=== PATIENT | male | born 1980 | race Caucasian/White ===

== ENCOUNTER 2018-11-23 16:56 | Emergency (ER) | payer OTHER, SELFPAY ==
[2018-11-23 16:57] VITALS: BP 159/107; PULSE 85; RESP 16; TEMP 36.6; O2SAT 99; BMI 43.0
[2018-11-23 19:11] VITALS: BP 156/94; RESP 16; O2SAT 99
--- NOTE | 2018-11-23 19:27 | ED.DCSUM_ITS ---
- ER Visit Summary Date of Service: 11/23/18 Chief Complaint: Left ear pain History of Present Illness: The patient is a 38 M who complained of mild sore throat scratchy throat last night. This morning he woke up with left ear pain. His throat is still somewhat scratchy. He has not had fever or chills. Physical Examination: Vital signs significant for blood pressure of 156/94, otherwise unremarkable. Patient sitting upright in bed no acute distress. He is nontoxic appearing. Head neck examination reveals hazy white fluid behind both TMs. On the left the distal canal is erythematous around the TM. Posterior pharynx examination reveals sinus drainage but no significant tonsillar enlargement or uvular deviation. Heart is regular rate and rhythm. Lung sounds are clear. Abdomen is soft nontender. Test Results: [] Emergency Department Course and Treatment: Patient be treated with a course of Augmentin, first dose given here. Treatment Plan: [] Disposition: Discharge Impression: Left otitis media This note was generated with 4th aspect dictation software. It may contain incorrect words, spelling, and punctuation that were not noted in review of the chart prior to signing ED Disposition - Plan for ED Patient: Disposition: Home or Assisted Living Instructions: ED Otitis Media Acute Adult Prescriptions: Amox/Clavulanate Tablet [Augmentin Tablet] 875 mg PO Q12H #20 tablet Referrals: Fito Gomez DO [NON CLINICAL AFFILIATE] - As Needed
[2018-11-23 19:34] VITALS: RESP 18
[2018-11-23] MEDS: Amox/Clavulanate 875 MG Tablet PO (19:34)
== END 2018-11-23 19:35 | disposition home or self-care (01) ==
PROVIDERS: Emergency Provider Emergency Medicine
DX: H66.92 Otitis media, unspecified, left ear (principal); J02.9 Acute pharyngitis, unspecified; E66.9 Obesity, unspecified; Z87.891 Personal history of nicotine dependence
CPT/HCPCS: 99283

== ENCOUNTER 2019-04-11 07:17 | Emergency (ER) | payer OTHER, SELFPAY ==
[2019-04-11 07:18] VITALS: BP 158/94; PULSE 80; RESP 16; TEMP 36.9; O2SAT 99; BMI 39.9
--- NOTE | 2019-04-11 07:25 | RAD_ITS ---
HISTORY: LBP and right leg pain s/p fall 04-07-19 TECHNIQUE: Lumbar spine 3 views Number of images including paperwork: 3 COMPARISON: None FINDINGS: VERTEBRAE: Lucency through the right L1 transverse process could be related to essentially nondisplaced fracture or artifact. VERTEBRAL ALIGNMENT: No traumatic subluxation. DISKS AND JOINTS: Disc heights are relatively well preserved. Moderate to severe facet arthropathy, most pronounced caudally. SOFT TISSUES: Hyperdensity in the right flank region measuring 5 x 9 mm is somewhat anteriorly located on the lateral view and is probably bowel content or calcified node. RAD/Lumbar Spine 2 or 3 Views IMPRESSION: Possible right L1 transverse process fracture. Degenerative changes. at 0750 Reported and signed by: Patricia Rhodes MD Electronically Signed: Patricia Rhodes MD at 7:50 EDT Tel , Service support ,
--- NOTE | 2019-04-11 07:25 | ED.VIS.BACK ---
History of Present Illness Chief Complaint: Back Informant: Patient Onset: Days Context: Sudden Onset Injury: Fall Timing: Continuous Quality: Dull, Aching Location: Lumbar Current Severity: Mild Maximum Severity: Severe Worsened by: improves with: Movement, Bending, - - Twisting to the right lateral Relieved by: Remaining Still Associated Symptoms: Radiation to Right Leg, - - All other associated symptoms are negative. Unable to\. Furthermore, patient denies saddle paresthesia or anesthesia. He denies foot drop. He denies buckling of his knee going up and down steps. Narrative: Patient is a 38-year-old male who presents to the emergency department because of back pain status post fall. He fell on Sunday. He states slipped down steps when it was raining hard. He complains of pain predominantly right lower back. He also reports pain radiating to the right greater trochanteric region. He denies blood in his urine. He denies history of prior back problems. He has not taken anything for it. He states he is put [place] with no improvement. He denies history of hypertension. He is present on no medications. He denies any neurologic, ocular, auditory or visual symptoms. He denies paresthesia, anesthesia or motor weakness. He denies problems with clumsiness. He denies head trauma. He denies neck pain or neck trauma. Prior similar symptoms: No Recent Illness/Hospitalization: No - Past Medical History (1) No significant past medical history Status: Acute Past Medical History - Allergies and Home Meds Allergies/Adverse Reactions: Allergies No Known Allergies Allergy (Verified 04/11/19 07:18) Primary Care Physician: Care Physician,No Primary [Primary Care Provider] - Past Medical History: None Surgical History: no surgical history Lives: Spouse/ Significant Other, With Family Smoking Status: Former smoker Alcohol: None Drugs: None Review of Systems General: Denies: Chills, Fever, Sweats Eyes: Denies: Visual changes - bilaterally, Blurred Vision - bilaterally, Diplopia ENT: Denies: Rhinorrhea, Sore throat Cardiovascular: Denies: Chest pain, Palpitations Respiratory: Denies: Dyspnea, Cough, Dyspnea on exertion Gastrointestinal: Denies: Abdominal pain, Nausea, Vomiting, Diarrhea, Melena, Hematochezia Genitourinary: Denies: Dysuria, Hematuria, Frequency Musculoskeletal: Reports: Back pain. Denies: Myalgias, Arthralgias, Neck pain, Swelling, Extremity Pain, -, - Skin: Denies: Rash, Wounds Neurological: Denies: Headache, Weakness, Numbness Hematologic: Denies: Easy bruising, Easy bleeding Allergy: Denies: Uticaria, Swelling of the mouth, Swelling of the tongue Physical Exam Vital Signs/Narrative: Vital Signs Temp Pulse Resp BP Pulse Ox 04/11/19 07:18 98.4 F 80 16 158/94 H 99 Inital Vital Signs reviewed: Yes General: Well nourished, Well developed Head: Normocephalic, Atraumatic Eyes: Perrl, EOMI ENT: Moist mucous membranes, No rhinorrhea Neck: Supple, Nontender Cardiovascular: Regular rate, Regular rhythm, No murmurs Respiratory: No distress, CTA bilaterally, Chest nontender Abdomen: Soft, Nontender, Nondistended, Normal bowel sounds Back: Normal Inspection, Nontender, Spinal tenderness, Paraspinal Tenderness, Negative SLR - Right, Negative SLR - Left. Negative for: Surgical Scar, CVA tenderness Extremeties: Nontender, No edema Skin: Normal color, No rash Neuro: Alert, Oriented, Normal Strength, Normal Sensation, Normal DTR, Normal Gait, Normal Reflexes - Patella and ankle reflexes are 1+., - - Gait was observed. There is no foot drop. He is able to walk on heels and toes. EHL is intact. He is able to perform 1 legged squat right and left side. Reflexes: Right Patellar, Right Achilles, Left Patellar, Left Achilles. Negative for: Right Clonus, Right Babinski, Left Clonus, Left Babinski Psychological: Normal affect Diagnostic/Tx/Re-eval X-Ray: LS SPine - Three-view x-ray of the LS spine reveals no fracture, asymmetry of the joints or malalignment. There is evidence of a right renal calculus., - - Medical Decision Making With history of pain after fall. Will obtain x-ray to evaluate for fracture. Since his drove him to the emergency department he received one [place] tablet and 1 500 mg tablet of Naprosyn. Differential is contusion versus strain versus fracture. ED Disposition - Plan for ED Patient: Disposition: Home or Assisted Living Diagnosis: Contusion of lower back and pelvis, initial encounter, Strain of muscle, fascia and tendon of lower back, initial encounter, Elevated blood pressure reading Instructions: Back Sprain/Strain, HYPERTENSION, To Be Confirmed Prescriptions: Naproxen [Naprosyn] 500 mg PO BID #10 tab Transmission Status: Pending to [facility]30 Referrals: Care Physician,No Primary [Primary Care Provider] - Cornelius Rosas MD [STAFF PHYSICIAN] - Additional Instructions: Your prescription was electronically transmitted to [facility]. You were referred to Dr. Cornelius Rosas since she did not have a physician. Your blood pressure is elevated. Your blood pressure should be rechecked in 1 to 2 weeks.
[2019-04-11] MEDS: HYDROcodone Bitartrate/Apap 5/325 Tablet PO (07:28)
[2019-04-11] MEDS: Naproxen 500 MG Tablet PO (07:29)
[2019-04-11 08:03] VITALS: BP 149/101
== END 2019-04-11 08:03 | disposition home or self-care (01) ==
LOC: ED 07:55
PROVIDERS: Emergency Provider Emergency Medicine
DX: S30.0XXA Contusion of lower back and pelvis, initial encounter (principal); S39.012A Strain of muscle, fascia and tendon of lower back, initial encounter; R03.0 Elevated blood-pressure reading, without diagnosis of hypertension; W10.9XXA Fall (on) (from) unspecified stairs and steps, initial encounter; Y93.9 Activity, unspecified; Y92.9 Unspecified place or not applicable; Z87.891 Personal history of nicotine dependence
CPT/HCPCS: 72100; 99283

== ENCOUNTER 2019-05-17 15:15 | Emergency (ER) | payer OTHER, SELFPAY ==
[2019-05-17 15:16] VITALS: BP 191/81; PULSE 86; RESP 16; TEMP 36.3; O2SAT 98; BMI 41.8
--- NOTE | 2019-05-17 15:51 | ED.DCSUM_ITS ---
History of Present Illness Informant: Patient Occurred: Today Mechanism/Context: Puncture Wound Onset: Today Context: Sudden Onset Timing: Continuous Quality of Pain: Throbbing Current Severity: Mild Maximum Severity: Mild Worsened by: walking Relieved by: pressure dressing Associated Symptoms: Negative for: Parasthesia, Weakness, Loss of Funtion Narrative: 38-year-old male presents for wound check left leg. He had a blister there is been there for months. He was scratching it and it started to bleed. He had difficulty getting the bleeding to stop and now presents to the emergency department for evaluation. Patient is not on blood thinners. He has no history of clotting disorder. He is not having any pain. He denies trauma. He denies numbness or tingling. Bleeding has stopped on arrival as he used a T-shirt as a tourniquet on his leg. Tetanus Immunization: Unknown Prior similar symptoms: No Recent Illness/Hospitalization: No <Krzysztof Ribeiro - Last Filed: 05/17/19 15:51> <Chata Bragg - Last Filed: 05/17/19 16:02> Chief Complaint: Wound Past Medical History Prior records reviewed: Yes Past Medical History: - - Hypertension Surgical History: no surgical history Lives: With Family Smoking Status: Former smoker <Krzysztof Ribeiro - Last Filed: 05/17/19 15:51> <Chata Bragg - Last Filed: 05/17/19 16:02> - Allergies and Home Meds Allergies/Adverse Reactions: Allergies No Known Allergies Allergy (Verified 05/17/19 15:15) Primary Care Physician: Joe Clements MD [NON-STAFF] - Review of Systems All systems negative except as indicated Musculoskeletal: Denies: Swelling, Extremity Pain Skin: Reports: Wounds Neurological: Denies: Weakness, Parasthesia, Numbness <Krzysztof Ribeiro - Last Filed: 05/17/19 15:51> Physical Exam Vital Signs/Narrative: Vital Signs Temp Pulse Resp BP Pulse Ox 05/17/19 15:16 97.3 F L 86 16 191/81 H 98 Inital Vital Signs reviewed: Yes - Extremity Exam Right Tib fib: - - Small blister left anterior leg. It is not actively bleeding. There are no signs of infection. There is no asymmetrical leg swelling. There are no signs of compartment syndrome. He is neurovascularly intact distally. He has normal range of motion actively of his lower extremity. His gait is normal. General: Well nourished, Well developed Head: Normocephalic, Atraumatic Eyes: Perrl, EOMI ENT: No Trauma, Moist Mucous Membranes Neck: Nontender, Full ROM Cardiovascular: Regular rate, Regular rhythm, No murmurs Respiratory: No distress, CTA bilaterally, Chest nontender Abdomen: Soft, Nontender, Nondistended, Normal bowel sounds, No masses Back: Nontender, Negative SLR - Right, Negative SLR - Left Skin: Normal color, No rash Neurological: Alert, Oriented x3 <Krzysztof Ribeiro - Last Filed: 05/17/19 15:51> Vital Signs/Narrative: Vital Signs Temp Pulse Resp BP Pulse Ox 05/17/19 15:16 97.3 F L 86 16 191/81 H 98 <Chata Bragg - Last Filed: 05/17/19 16:02> Diagnostic/Tx/Re-eval - Medical Decision Making On arrival there is no active bleeding. Patient has no signs of infection or c ompartment syndrome. His gait is normal. Gelfoam and a pressure dressing were applied. He had no further bleeding. He ambulates without bleeding. He will be discharged. We discussed proper wound care. He was given signs of infection to monitor for. He was advised to follow-up with his primary care physician. <Krzysztof Ribeiro - Last Filed: 05/17/19 15:51> - Medical Decision Making Patient seen and evaluated with PA. Patient presents with what he thought was a blood blister over the lower leg for the last 1 month. He was scratching at it today and it started bleeding. Bleeding is controlled at this time. He is a small scabbed wound to the left anterior bond. No sign of abscess. Wound is cleansed and dressed. He was given return instructions. <Chata Bragg - Last Filed: 05/17/19 16:02> ED Disposition <Krzysztof Ribeiro - Last Filed: 05/17/19 15:51> <Chata Bragg - Last Filed: 05/17/19 16:02> - Plan for ED Patient: Disposition: Home or Assisted Living Diagnosis: Blister Instructions: Varicose Veins Referrals: Joe Clements MD [NON-STAFF] -
[2019-05-17 16:09] VITALS: BP 177/87; PULSE 78; RESP 16; O2SAT 99
== END 2019-05-17 16:11 | disposition home or self-care (01) ==
LOC: ED 16:03
PROVIDERS: Emergency Provider Physician Assistant Medical; Family Provider Family Medicine; PCP Family Medicine
DX: S80.822A Blister (nonthermal), left lower leg, initial encounter (principal); X58.XXXA Exposure to other specified factors, initial encounter; Y93.9 Activity, unspecified; Y92.9 Unspecified place or not applicable; Z87.891 Personal history of nicotine dependence
CPT/HCPCS: 99282; A4216

== ENCOUNTER 2019-10-17 17:08 | Emergency (ER) | payer BC, SELFPAY ==
[2019-10-17 17:09] VITALS: BP 166/90; PULSE 82; RESP 16; TEMP 36.1; O2SAT 99; BMI 42.5
--- NOTE | 2019-10-17 17:34 | EKG12_ITS ---
Test Reason : CP Blood Pressure : / mmHG Vent. Rate : 086 BPM Atrial Rate : 086 BPM P-R Int : 168 ms QRS Dur : 094 ms QT Int : 370 ms P-R-T Axes : 050 033 049 degrees QTc Int : 442 ms Normal sinus rhythm Normal ECG Confirmed by KAUR LI, ALEX ([id number]), mapping editor HIEN CAMACHO ([id number]) on 10/20/2019 2:10:25 PM Referred By: ERNA Confirmed By:JERILYN DIETRICH MD
--- NOTE | 2019-10-17 17:35 | RAD_ITS ---
STUDY: X-RAY CHEST REASON FOR EXAM: Male, 38 years old. Chest pain TECHNIQUE: Single AP portable view of the chest. COMPARISON: None. FINDINGS: The lungs are clear and expanded. There is no demonstrated pleural abnormality. Normal size heart. Normal mediastinum and jose. Normal visualized pulmonary arteries. Normal visualized aortic arch and descending thoracic aorta. Normal visualized thoracic spine. Normal visualized ribs, clavicles, and shoulders. There is no demonstrated abnormality of the visualized soft tissue structures of the upper abdomen. RAD/Chest 1 View (Portable) IMPRESSION: Normal x-ray examination of the chest. Electronically Signed: Wellington Joshi MD at 18:03 EST , Service support ,
[2019-10-17 17:46] VITALS: O2SAT 98
[2019-10-17] MEDS: Aspirin 81 MG TAB.CHEW 324 MG PO (17:46)
[2019-10-17 17:49] LABS: Absolute Lymphocyte Count 2.35 X10^3/uL (0.83-4.51); Absolute Neutrophil Count 4.3 X10^3/uL (2.0-7.7); Basophil# 0.05 X10^3/uL; Basophil% 0.7 % (0-1); Eosinophil# 0.27 X10^3/uL; Eosinophils% 3.5 % (0-5); Hematocrit 43.5 % (40-54); Hemoglobin 15.2 g/dL (13.0-16.5); Lymphocyte # 2.35 X10^3/ul (4.0); Lymphocyte % 30.8 % (19-41); Mean Corp Hgb Conc 34.9 g/dL (32-36); Mean Corpuscular Hgb 29.2 pg (27.0-32.0); Mean Corpuscular Volume 83.5 fL (80-94); Mean Platelet Vol. 10.6 fl (6.2-12.0); Monocyte# 0.61 X10^3/uL; NRBC Flagged by Analyzer 0 % (0-5); Neutrophil # 4.31 X10^3/uL (2.7-7.7); Neutrophil % 56.5 % (47-70); Platelet Count 239 K/mm3 (150-450); RBC Distribution Width CV 13.1 % (11.6-14.6); RBC Distribution Width SD 39.4 fl (35.1-43.9); Red Blood Count 5.21 M/mm3 (4.6-6.2); White Blood Count 7.6 K/mm3 (4.4-11.0)
[2019-10-17 18:04] LABS: Anion Gap 4 (5-15); BUN 11 mg/dL (7-18); Calcium,Total 8.7 mg/dL (8.5-10.1); Chloride 104 mmol/L (98-107); EST Glomerular Filtration Rate 88 mL/min (>60); Est Glom Filt Rate - Afr Amer 106 mL/min (>60); Estimated Creatinine Clearance 117.36 ml/min; Glucose 97 mg/dL (74-106); Potassium 3.6 mmol/L (3.5-5.1); Sodium Level 139 mmol/L (136-145)
[2019-10-17 18:08] VITALS: BP 154/79; PULSE 72; RESP 20; O2SAT 98
[2019-10-17 19:00] VITALS: BP 145/98; PULSE 65; RESP 20; O2SAT 98
--- NOTE | 2019-10-17 19:00 | ED.VISSUMM ---
- ER Visit Summary Date of Service: 10/17/19 Chief Complaint: Chest discomfort History of Present Illness: The patient is a 38 M past medical history of hypertension. Patient states he has needlelike pain sensation in his chest that is been constant for last couple days. No prior cardiac work-up nor heart cath or stress test. Not associated with exertion. No nausea. No diaphoresis. No significant shortness of breath. No history of DVT or PE. No recent travel surgery or immobilization. Not pleuritic in nature. No hemoptysis. No leg pain or swelling. Physical Examination: Middle-aged male no acute distress vital signs stable afebrile. Pulse ox 99% on room air no signs hypoxia. H EENT exam normal. Neck nontender no JVD. Lungs clear to auscultation bilaterally. Heart regular rhythm no murmur. Chest were nontender. Abdomen soft nontender normal bowel sounds no peritoneal signs. Patient moving all 4 extremities. Neurovascular intact. Calves nontender without edema or cords. Equal symmetrical rim fire priming operator strength 5-5. Dorsi plantarflexion intact. Radial pulses equal symmetrical. Neurologically patient is awake alert with no focal motor deficits. Test Results: Chest x-ray portable 1 view read by myself the radiologist shows no acute abnormality with a normal cardiac silhouette mediastinum. EKG normal sinus rhythm rate 86 with no acute signs of UT or ischemia. CBC normal. Chemistries normal normal creatinine gap. Troponin normal. Emergency Department Course and Treatment: Patient treated with p.o. aspirin. Repeat exam is unremarkable at 1901 p.m. Clinically this does not sound cardiac. He has a negative work-up. This is nonexertional. He has limited cardiac risk factors. He is not diabetic. He is a non-smoker. He does not have a significant family history of cardiac disease or for clotting disorder. Treatment Plan: Discharged home. Outpatient follow-up. Return if worse. Disposition: Discharge Impression: Atypical chest pain uncertain etiology This note was generated with [employer] dictation software. It may contain incorrect words, spelling, and punctuation that were not noted in review of the chart prior to signing ED Disposition - Plan for ED Patient: Referrals: Joe Clements MD [Primary Care Provider] -
--- NOTE | 2019-10-17 19:03 | ED.DEP ---
ED Disposition - Plan for ED Patient: Disposition: Home or Assisted Living Instructions: CHEST PAIN, Uncertain Cause Referrals: Joe Clements MD [Primary Care Provider] - 3-5 Days Additional Instructions: Follow-up with your doctor. All your tests today were normal.
== END 2019-10-17 19:15 | disposition home or self-care (01) ==
PROVIDERS: Emergency Provider Emergency Medicine; PCP Family Medicine
DX: R07.89 Other chest pain (principal); I10 Essential (primary) hypertension; Z79.899 Other long term (current) drug therapy
CPT/HCPCS: 71045; 80048; 84484; 85025; 93005; 99285; A4216

== ENCOUNTER 2020-05-12 18:15 | Emergency (ER) | payer SELFPAY ==
[2020-05-12 18:16] VITALS: BP 100/59; PULSE 88; RESP 18; TEMP 36.3; O2SAT 99; BMI 43.2
--- NOTE | 2020-05-12 18:33 | EKG12_ITS ---
Test Reason : CP Blood Pressure : / mmHG Vent. Rate : 079 BPM Atrial Rate : 079 BPM P-R Int : 162 ms QRS Dur : 092 ms QT Int : 382 ms P-R-T Axes : 034 026 035 degrees QTc Int : 438 ms Sinus rhythm with frequent Premature ventricular complexes Otherwise normal ECG Confirmed by ARMANI LI, AYANA ([id number]), assignment desk editor HIEN CAMACHO ([id number]) on 05/17/2020 1:27:07 PM Referred By: AZALEA Confirmed By:AYANA LOMELI MD
[2020-05-12 18:47] VITALS: O2SAT 96
--- NOTE | 2020-05-12 18:50 | RAD_ITS ---
STUDY: X-RAY CHEST REASON FOR EXAM: Male, 39 years old. Dizziness. Shortness of breath for 2 weeks. Heart pounding. TECHNIQUE: Single AP portable view of the chest. COMPARISON: 10/17/2019. FINDINGS: The lungs are clear and expanded. There is no demonstrated pleural abnormality. Normal size heart. Normal mediastinum and jose. Normal visualized pulmonary arteries. Normal visualized aortic arch and descending thoracic aorta. Normal visualized thoracic spine. Normal visualized ribs, clavicles, and shoulders. There is no demonstrated abnormality of the visualized soft tissue structures of the upper abdomen. RAD/Chest 1 View (Portable) IMPRESSION: No acute cardiopulmonary disease or interval change. Electronically Signed: Ford Wright DO at 19:18 EDT Tel [phone], Service support ,
[2020-05-12 18:59] LABS: Absolute Lymphocyte Count 1.85 X10^3/uL (0.83-4.51); Absolute Neutrophil Count 6.6 X10^3/uL (2.0-7.7); Basophil# 0.04 X10^3/uL; Basophil% 0.4 % (0-1); Eosinophil# 0.14 X10^3/uL; Eosinophils% 1.5 % (0-5); Hematocrit 43.4 % (40-54); Hemoglobin 14.9 g/dL (13.0-16.5); Lymphocyte # 1.85 X10^3/ul (4.0); Lymphocyte % 20.1 % (19-41); Mean Corp Hgb Conc 34.3 g/dL (32-36); Mean Corpuscular Hgb 29.5 pg (27.0-32.0); Mean Corpuscular Volume 85.9 fL (80-94); Mean Platelet Vol. 10.1 fl (6.2-12.0); Monocyte# 0.54 X10^3/uL; Monocyte% 5.9 % (0-10); NRBC Flagged by Analyzer 0 % (0-5); Neutrophil # 6.59 X10^3/uL (2.7-7.7); Neutrophil % 71.7 % (47-70); Platelet Count 252 K/mm3 (150-450); RBC Distribution Width CV 12.9 % (11.6-14.6); RBC Distribution Width SD 39.9 fl (35.1-43.9); Red Blood Count 5.05 M/mm3 (4.6-6.2); White Blood Count 9.2 K/mm3 (4.4-11.0)
--- NOTE | 2020-05-12 19:03 | ED.VIS.GEN ---
History of Present Illness Chief Complaint: Palpitations Informant: Patient Onset: Days Timing: Intermittent Narrative: Patient presents secondary to feeling like his heart is pounding hard. He has episodes of dizziness and lightheadedness. Symptoms been ongoing for the past 2 weeks. Patient had been on metoprolol for blood pressure control and was out of his medications for couple of weeks. He contacted his PCP who sent in a refill the medication. He started taking half dose yesterday and again today. At work today he states he felt lightheaded as if he may pass out and his heart was pounding so he came to the emergency room. On arrival blood pressure was 100/59 which patient states is extremely low for him. The time of my examination his blood pressure is 129/85. - Past Medical History (1) Hypertension Status: Chronic Past Medical History - Allergies and Home Meds Allergies/Adverse Reactions: Allergies No Known Allergies Allergy (Verified 05/12/20 18:15) Primary Care Physician: Joe Clements MD [Primary Care Provider] - Prior records reviewed: Yes Surgical History: no surgical history Smoking Status: Former smoker Review of Systems General: Denies: Chills, Fever Eyes: Denies: Visual changes - bilaterally ENT: Denies: Bilateral ear pain Cardiovascular: Reports: Palpitations Respiratory: Reports: Dyspnea. Denies: Cough Musculoskeletal: Denies: Swelling, Extremity Pain Skin: Denies: Rash Neurological: Reports: - - Dizzy and lightheaded Hematologic: Denies: Easy bruising, Easy bleeding Allergy: Denies: Uticaria Physical Exam Vital Signs/Narrative: Vital Signs Temp Pulse Resp BP Pulse Ox 05/12/20 18:47 96 05/12/20 18:16 97.4 F L 88 18 100/59 L 99 Inital Vital Signs reviewed: Yes General: Well nourished, Well developed Head: Normocephalic ENT: Moist mucous membranes Neck: Supple Cardiovascular: Regular rate, Regular rhythm Respiratory: No distress, CTA bilaterally Abdomen: Soft, Nontender Extremities: Nontender Skin: Normal color, No rash Neurological: Alert, Oriented x3, Normal Strength, Normal Sensation Psychological: Normal affect Diagnostic/Tx/Re-eval Impressions Chest X-Ray 05/12/20 18:50 IMPRESSION: No acute cardiopulmonary disease or interval change. Electronically Signed: Ford Wright DO at 19:18 EDT Tel [phone], Service support , 05/12/20 18:50 Chest 1 View (Portable) [RAD] Stat Laboratory Results 05/12/20 05/12/20 05/12/20 18:45 18:45 18:45 WBC 9.2 RBC 5.05 Hgb 14.9 Hct 43.4 MCV 85.9 MCH 29.5 MCHC 34.3 RDW Std Deviation 39.9 RDW Coeff of Danette 12.9 Plt Count 252 MPV 10.1 Immature Gran % (Auto) 0.400 Neut % (Auto) 71.7 H Lymph % (Auto) 20.1 [place] % (Auto) 5.9 Eos % (Auto) 1.5 Baso % (Auto) 0.4 Absolute Neuts (auto) 6.6 Absolute Lymphs (auto) 1.85 Nucleated RBC % 0 Sodium 139 Potassium 3.5 Chloride 109 H Carbon Dioxide 29.0 Anion Gap 1 L BUN 10 Creatinine 0.95 Estim Creat Clear Calc 122.30 Est GFR (MDRD) Af Amer 112 Est GFR (MDRD) Non-Af 92 BUN/Creatinine Ratio 10.5 Glucose 81 Calcium 9.0 Troponin I < 0.015 TSH 1.69 - EKG Initial EKG Interpretation: Sinus Rhythm - Sinus at 79 with PVCs. No acute ischemia. - Medical Decision Making Patient was given IV fluids here. At this time he feels much improved. PVCs have decreased in frequency. Blood pressure is currently 140/110, closer to what he states his baseline is. Patient will start taking his metoprolol at bedtime to see if this helps minimize any side effects of the medication. He is comfortable with outpatient follow-up. ED Disposition - Plan for ED Patient: Disposition: Home or Assisted Living Diagnosis: Palpitations Instructions: ED Palpitations Referrals: Joe Clements MD [Primary Care Provider] - 1 Week if not improving
[2020-05-12 19:15] VITALS: BP 147/107; PULSE 70; RESP 16; O2SAT 97
[2020-05-12 19:17] LABS: Anion Gap 1 (5-15); BUN 10 mg/dL (7-18); BUN/Creat Ratio 10.5 RATIO (10-20); Chloride 109 mmol/L (98-107); Creatinine, Serum 0.95 mg/dL (0.70-1.30); EST Glomerular Filtration Rate 92 mL/min (>60); Est Glom Filt Rate - Afr Amer 112 mL/min (>60); Glucose 81 mg/dL (74-106); Potassium 3.5 mmol/L (3.5-5.1); Sodium Level 139 mmol/L (136-145)
[2020-05-12 19:41] LABS: Thyroid Stim Hormone (TSH) 1.69 uIU/mL (0.358-3.74)
[2020-05-12 20:02] VITALS: BP 143/86; PULSE 64; RESP 16; O2SAT 100
[2020-05-12] MEDS: 0.9% Normal Saline 1,000 ML 150 ML IV (20:03)
[2020-05-12 20:28] VITALS: BP 140/110; PULSE 59; RESP 16; O2SAT 100
== END 2020-05-12 20:30 | disposition home or self-care (01) ==
PROVIDERS: Emergency Provider Emergency Medicine; PCP Family Medicine
DX: R00.2 Palpitations (principal); I49.3 Ventricular premature depolarization; I10 Essential (primary) hypertension; Z79.899 Other long term (current) drug therapy; Z87.891 Personal history of nicotine dependence
CPT/HCPCS: 71045; 80048; 84443; 84484; 85025; 93005; 99284; J7030; A4216

== ENCOUNTER 2021-10-28 11:30 | Emergency (ER) | payer OTHER, SELFPAY ==
[2021-10-28 11:31] VITALS: BP 159/102; PULSE 103; RESP 16; TEMP 36.9; O2SAT 99; BMI 45.0
--- NOTE | 2021-10-28 11:41 | EX.ED.DYSGE1 ---
HPI History of Present Illness Chief Complaint: Sore Throat Informant: patient Narrative Narrative: 2-day history of sore throat pain with swallowing no fevers. Mild cough. No headaches vomiting or diarrhea. is sick with similar symptoms however reported she is on antibiotics for other infectious treatment. Nonvaccinated for Covid. No myalgias. History of hypertension on medications. Prior similar symptoms: Yes PFSH PFSH Home Medications metoprolol succinate 50 mg PO DAILY 10/17/19 [History Last Taken 05/12/20] Allergy/AdvReac Type Severity Reaction Status Date / Time No Known Allergies Allergy Verified 10/28/21 11:34 Social History Smoking Status: Former smoker ROS ROS ED Constitutional Constitutional ED: Denies chills, fever(s) or sweats Eyes Eyes: Denies change in vision ENT ENT ED: Reports sore throat; Denies dysphagia Cardiovascular Cardiovascular: Denies chest pain, leg edema, palpitations or racing heartbeat Respiratory/Chest Respiratory/Chest: Reports cough; Denies dyspnea or dyspnea on exertion Gastrointestinal Gastrointestinal: Denies abdominal pain, diarrhea, nausea or vomiting Genitourinary Genitourinary ED: Denies dysuria, hematuria or urinary frequency Musculoskeletal Musculoskeletal: Denies back pain, extremity pain or neck pain Integumentary Denies rash or wounds Neurologic Neurologic: Denies headache(s), paresthesias or weakness EXAM Physical Exam Const Vital Signs: 10/28/21 11:31 Temperature 98.4 F Temperature Source Temporal Pulse Rate 103 H Respiratory Rate 16 Blood Pressure 159/102 H Blood Pressure Mean 121 Pulse Ox 99 Oxygen Delivery Method Room Air Positive well nourished and well developed General Appearance ED: well developed and NAD HEENT Reports TM's clear and moist mucous membranes HEENT Narrative: 2+ symmetric tonsils with erythema no exudates uvula midline. No trismus. Airway patent. normocephalic and atraumatic Tympanic Membrane ED: Yes TM's clear Eyes PERRL, EOMs intact bilaterally and conjunctivae normal General Eye ED: Yes normal appearance of both eyes Neck no lymphadenopathy and supple General: Negative for tenderness Chest Wall Chest: Negative for tenderness Resp normal respiratory effort and normal air movement Effort and Inspection: symmetric chest movement; Negative for respiratory distress Cardio regular rate, regular rhythm and no murmurs Peripheral Pulses: pulses 2+ throughout GI normal to inspection, nondistended, normoactive bowel sounds and non-tender Palpation: Negative for guarding or rebound tenderness present Back/Spine no CVA tenderness and no thoracic nor lumbar tenderness Extremity normal to inspection General Extremety ED: Negative for edema or tenderness General Extremity: Negative for edema Neuro oriented x3 and no sensory deficits noted Sensorium / Orientation: awake and alert Skin no rashes or lesions noted and no wounds MDM MDM MDM Narrative Medical decision making narrative: Patient nontoxic, started with dexamethasone. Rapid strep returned positive. He elected injection Bicillin was ordered. Also wanted a Covid test which obtained and returned negative. He is discharged with outpatient follow-up. Discharge Plan Triage Chief Complaint: Sore Throat ED Provider: Maximino Larry Dx/Rx/DC Orders Clinical Impression: Acute streptococcal pharyngitis Instructions: ED Pharyngitis, Strep (Confirmed) Prescriptions: No Action metoprolol succinate 25 MG capsule,sprinkle,ER 24hr 50 mg PO DAILY RF: 0 Primary Care Provider: Joe Clements Referrals: Joe Clements MD [Primary Care Provider] - 5-7 Days Activity Restrictions/Additional Instructions: Positive strep throat. Status post Decadron and Bicillin injection. Did give Tylenol Motrin as needed continue oral fluids. Disposition Disposition: Home, Self Care Discharge Date/Time: 10/28/21 12:56
[2021-10-28] MEDS: dexAMETHasone 4 MG Tablet 12 MG PO (12:06)
[2021-10-28] MEDS: Penicillin G Benzathine 1.2 MU/2 ML Syringe IM (12:53)
== END 2021-10-28 12:56 | disposition home or self-care (01) ==
PROVIDERS: Emergency Provider Emergency Medicine; PCP Family Medicine; Visit Provider Emergency Medicine
DX: J02.0 Streptococcal pharyngitis (principal); I10 Essential (primary) hypertension; Z79.899 Other long term (current) drug therapy; Z87.891 Personal history of nicotine dependence
CPT/HCPCS: 87077; 87426; 87880; 96372; 99283

== ENCOUNTER 2022-04-24 07:22 | Emergency (ER) | payer OTHER, SELFPAY ==
[2022-04-24 07:22] VITALS: BP 165/114; PULSE 100; RESP 18; TEMP 36.6; O2SAT 96; BMI 41.8
--- NOTE | 2022-04-24 09:22 | ED.VIS.LOWEX ---
HPI History of Present Illness HPI Narrative: Patient presents with left hip pain that began 2 days ago. Patient states he twisted and felt pain in his left hip at that time. Patient describes the pain as aching. Patient states the pain is worse with ambulation. Patient denies any paresthesias or weakness. Patient denies any other injuries. Patient states nothing makes the pain better. Chief Complaint: Lower Extremity Injury Informant: patient Occured/Mechanism Comment: Twisted left hip Onset/Context/Timing Onset: Days (2 days ago) Context: Sudden Onset Timing: Continuous Quality of Pain: Aching Location: Left hip Worsened by: Ambulation Relieved by: Nothing Associated Symptoms Associated Symptoms: Negative for Parasthesia, Weakness or Loss of Funtion PFSH PFSH Medical History no medical history no medical history Home Medications naproxen 500 mg tablet 500 mg PO BID PRN #20 tabs 04/24/22 [Rx Last Taken Unknown] Allergy/AdvReac Type Severity Reaction Status Date / Time No Known Allergies Allergy Verified 04/24/22 07:24 Surgical History no surgical history no surgical history Social History Smoking Status: Former smoker ROS ROS ED Constitutional Constitutional ED: Denies chills or fever(s) Eyes Eyes: Denies blurry vision or change in vision ENT ENT ED: Denies rhinorrhea or sore throat Cardiovascular Cardiovascular: Denies chest pain or palpitations Respiratory/Chest Respiratory/Chest: Denies cough or dyspnea Gastrointestinal Gastrointestinal: Denies nausea or vomiting Genitourinary Genitourinary ED: Denies dysuria or hematuria Musculoskeletal Musculoskeletal: Denies back pain or neck pain Integumentary Denies abscess or rash Neurologic Neurologic: Denies headache(s) or weakness Allergic/Immunologic Allergic/Immunologic ED: Denies mouth swelling or urticaria EXAM Physical Exam Const Vital Signs: 04/24/22 07:22 Temperature 98 F Temperature Source Temporal Pulse Rate 100 Respiratory Rate 18 Blood Pressure 165/114 H Blood Pressure Mean 131 Pulse Ox 96 Oxygen Delivery Method Room Air Positive well nourished, well developed and obese General Appearance ED: well developed and NAD Nutritional Appearance: obese Neck full ROM and supple Extremity normal to inspection Extremity Narrative: There is tenderness over the posterior lateral aspect of the left hip. There is no tenderness over the greater trochanter. There is no deformity noted. There is some mild pain with internal and external rotation but there is good range of motion. There is limited range of motion with flexion of the left hip secondary to pain. Strength is 5/5 bilaterally in the lower extremities. There are no sensory deficits noted. Pedal pulses are equal bilaterally. Neuro oriented x3, CN's II-XII intact bilaterally, moves all extremities and no sensory deficits noted Sensorium / Orientation: alert Motor Exam: strength 5/5 throughout Psych mental status grossly normal MDM MDM MDM Narrative Medical decision making narrative: Patient has been able to ambulate on his left hip for the past 2 days. I do not feel the patient needs imaging at this time. Patient was given crutches. Patient was given a prescription for Naprosyn. Patient was instructed use ice to the area. Patient was instructed to follow-up with his primary care physician in 5 to 7 days. Patient understood and was agreeable with the plan. All questions were answered. Discharge Plan Triage Chief Complaint: Lower Extremity Injury ED Provider: Cornelius Mcgovern Dx/Rx/DC Orders Clinical Impression: Strain of muscle, fascia and tendon of left hip, initial encounter, Hypertension, Morbid obesity with BMI of 40.0-44.9, adult Instructions: ED Hip Strain Prescriptions: New naproxen 500 mg tablet 500 mg PO BID PRN Qty: 20 0RF Primary Care Provider: Joe Clements Referrals: Joe Clements MD [Primary Care Provider] - Disposition Disposition: Home, Self Care
[2022-04-24 09:54] VITALS: PULSE 98; RESP 17; O2SAT 97
== END 2022-04-24 09:54 | disposition home or self-care (01) ==
PROVIDERS: Emergency Provider Emergency Medicine; PCP Family Medicine; Visit Provider Emergency Medicine
DX: S76.012A Strain of muscle, fascia and tendon of left hip, initial encounter (principal); E66.01 Morbid (severe) obesity due to excess calories; Z68.41 Body mass index [BMI] 40.0-44.9, adult; Z87.891 Personal history of nicotine dependence; I10 Essential (primary) hypertension; X50.1XXA Overexertion from prolonged static or awkward postures, initial encounter
CPT/HCPCS: 99283

== ENCOUNTER → 2023-09-07 | Outpatient (CLI) | payer OTHER, SELFPAY ==
--- OUTSIDE RECORDS SUMMARY | 2023-09-07 20:00 | XMS RPT_ITS | CCD ---
Author Name Unknown Address [address] [place] [address] Organization [facility] Care Team Providers Care Supervisor Of Way Name Role Phone Tai Ascencio MD Primary Care Provider TAI ASCENCIO Primary Care Unavailable RAMIRO WEAVER Attending Unavailable NICOLE MEDINA Attending Unavailable TAI ASCENCIO Primary Care Unavailable TAI ASCENCIO Attending Unavailable TAI ASCENCIO Primary Care Unavailable TAI ASCENCIO Primary Care Unavailable ALBA PATEL Referring Unavailable TAI ASCENCIO Primary Care Unavailable RAMIRO WEAVER Referring Unavailable Medications Completed/Discontinued Medications Medication Drug Class(es) Dates Sig (Normalized) Sig (Original) Blood Pressure Monitor (BLOOD PRESSURE KIT) kit (10 sources) Start: 10-21-2019 Blood Pressure Monitor (BLOOD PRESSURE KIT) kit Indications: Essential hypertension, benign Blood pressure monitor and cuff. Test daily. 1 Kit 0 10/21/2019 Active Problems Active Problems Problem Classification Problem Date Documented Date Episodic/Chronic Essential hypertension (13 sources) Benign essential hypertension; Translations: [Essential (primary) hypertension] Onset: 02-19-2012 Chronic Fracture of neck of femur (hip) (2 sources) Closed fracture of hip; Translations: [Fracture of unspecified part of neck of left femur, initial encounter for closed fracture] Episodic Other connective tissue disease (2 sources) Pain in left lower limb; Translations: [Pain in left leg] Episodic Other fractures (4 sources) Closed fracture of acetabulum; Translations: [Unspecified fracture of left acetabulum, initial encounter for closed fracture] Episodic Other lower respiratory disease (1 source) Snoring; Translations: [Snoring] Onset: 08-30-2023 Episodic Other non-traumatic joint disorders (2 sources) Hip pain; Translations: [Pain in left hip] Episodic Other nutritional; endocrine; and metabolic disorders (11 sources) Body mass index 40+ - severely obese; Translations: [Morbid (severe) obesity due to excess calories] Onset: 05-22-2019 05-22-2019 Chronic Other nutritional; endocrine; and metabolic disorders (1 source) Morbid (severe) obesity due to excess calories; Translations: [Obesity, Class III, BMI 40-49.9 (morbid obesity) (HCC)] Onset: 10-05-2022 Chronic Other upper respiratory disease (11 sources) Seasonal allergic rhinitis; Translations: [Other seasonal allergic rhinitis] Onset: 10-21-2019 10-21-2019 Chronic Residual codes; unclassified (1 source) Peripheral edema; Translations: [Edema, unspecified] Episodic Spondylosis; intervertebral disc disorders; other back problems (1 source) Degeneration of lumbar intervertebral disc; Translations: [Other intervertebral disc degeneration, lumbar region] Chronic Sprains and strains (1 source) Strain of muscle and/or tendon of thigh; Translations: [Strain of left quadriceps muscle, fascia and tendon, initial encounter] Episodic Past or Other Problems Problem Classification Problem Date Documented Date Episodic/Chronic Headache; including migraine (11 sources) Headache; Translations: [Headache, unspecified headache type] Onset: 09-30-2019 09-30-2019 Episodic Other connective tissue disease (1 source) Pain in left leg; Translations: [Left leg pain] Onset: 10-02-2022 Episodic Other diseases of veins and lymphatics (3 sources) Venous insufficiency of leg; Translations: [Venous insufficiency (chronic) (peripheral)] Onset: 10-05-2022 10-05-2022 Episodic Other screening for suspected conditions (not mental disorders or infectious disease) (5 sources) Patient encounter status; Translations: [Encounter for screening for lipoid disorders] Onset: 10-02-2022 Episodic Residual codes; unclassified (5 sources) Tobacco user; Translations: [Tobacco use] Onset: 09-07-2022 Episodic Screening and history of mental health and substance abuse codes (10 sources) Ex-smoker; Translations: [Personal history of nicotine dependence] Onset: 07-12-2020 07-12-2020 Episodic Results Test Name Value Interpretation Reference Range Facil ity Vital Signs Date Time Vital Sign Value Performing Clinician Faci berkley 09-07-2022 13:20-0500 Body height 186.1 cm Ramiro Weaver PA-C Work Phone: [facility] 09-07-2022 13:20-0500 Body temperature 98.71 [degF] Ramiro Weaver PA-C Work Phone: [facility] 09-07-2022 13:20-0500 Body weight 174.82 kg Ramiro Weaver PA-C Work Phone: [facility] 09-07-2022 13:20-0500 Diastolic blood pressure 86 mm[Hg] Ramiro Weaver PA-C Work Phone: [facility] 09-07-2022 13:20-0500 Heart rate 74 /min Ramiropaxton Weaver PA-C Work Phone: [facility] 09-07-2022 13:20-0500 Respiratory rate 18 /min Ramiro Weaver PA-C Work Phone: [facility] 09-07-2022 13:20-0500 SaO2% (BldA) [Mass fraction] 97 % Ramiro Weaver PA-C Work Phone: [facility] 09-07-2022 13:20-0500 Systolic blood pressure 142 mm[Hg] Ramiro Weaver PA-C Work Phone: [facility] 05-15-2022 07:29-0400 Body temperature 98.1 [degF] Ramiro Weaver PA-C Work Phone: [facility] 05-15-2022 07:29-0400 Body weight 173.27 kg Ramiro Weaver PA-C Work Phone: [facility] 05-15-2022 07:29-0400 Diastolic blood pressure 112 mm[Hg] Ramior Weaver PA-C Work Phone: [facility] 05-15-2022 07:29-0400 Heart rate 76 /min Ramiro Weaver PA-C Work Phone: [facility] 05-15-2022 07:29-0400 Respiratory rate 18 /min Ramiro Weaver PA-C Work Phone: [facility] 09-19-2022 07:29-0400 Systolic blood pressure 162 mm[Hg] Ramiro Weaver PA-C Work Phone: [facility] Encounters Encounter Date Encounter Type Care Provider Facility Start: 08-30-2023 End: 08-31-2023 ambulatory NICOLE MEDINA Facility:[facility] Start: 05-15-2023 Refill Tai mercado MD Work Phone: [facility] Procedures Date Procedure Procedure Detail Performing Clinician Start: 10-02-2022 Lipid 1996 panel - S andree or Plasma Tai Ascencio MD Work Phone: Start: 05-11-2022 Adult depression screening assessment Ramiro Weaver PA-C Work Phone: Plan of Treatment Date Care Activity Detail Author Start: 05-22-2029 Urine microalbumin profile [facility] Start: 10-02-2027 Lipid 1996 panel - S andree or Plasma Lipid Screening [facility] Start: 10-02-2027 LIPID SCREEN LIPID SCREEN [facility] Start: 05-24-2024 LIPID SCREEN LIPID SCREEN [facility] Start: 10-05-2023 ANNUAL PCP TEAM INSTRUCTOR [employer] STEFANIE DISEASE VISIT ANNUAL PCP TEAM CHRONIC DISEASE VISIT [facility] Start: 09-07-2023 ANNUAL PCP TEAM INSTRUCTOR [employer]GRAMM[employer]LL[employer] STEFANIE DISEASE VISIT ANNUAL PCP TEAM CHRONIC DISEASE VISIT [facility] Start: 09-07-2023 COVID-19 VACCINE (#1) COVID-19 VACCI NE (#1) [facility] Immunizations Immunization Date Immunization Notes Care Provider Fa cility 05-22-2019 tetanus toxoid, redu monse diphtheria toxoid, and acellular pertussis vaccine, adsorbed Ramiro Weaver PA-C Work Phone: [facility] Work Phone: 10-04-2017 influenza virus vaccine, unspecified formulation Tai Ascencio MD Work Phone: [facility] 05-27-2009 influenza virus vaccine, unspecified formulation Ramiro Weaver PA-C Work Phone: [facility] Work Phone: Payers Date Payer Category Payer Unknown [id number] 2021 Unknown [id number] Social History Date Type Detail Facility Start: 05-15-2022 End: 05-25-2022 Tobacco smoking status NHIS Ex-smoker [facility] End: 08-19-2012 History of tobacco use Current smoker [facility] End: 08-19-2012 History of tobacco use Cigarette Smoker [facility] Start: 05-15-2022 End: 04-05-2023 Cigarettes smoked current (pack per day) - Reported 1.5 [facility] Start: 05-15-2022 Tobacco use and exposure Anjana r smokeless tobacco user [facility] Start: 05-25-2022 End: 05-05-2019 History of tobacco use User of smokeless tobacco [facility] Start: 05-15-2022 End: 10-05-2022 Alcohol intake Current drinker of alcohol (finding) [facility] Start: 07-12-2020 End: 05-11-2022 History SDOH Alcohol Frequency 1 [facility] Start: 05-11-2022 History SDOH Alcohol Std Drinks 0 [facility] Start: 09-13-2010 History SDOH Alcohol Comment occasional, maybe once a month. [facility] Start: 05-11-2022 History SDOH Social Connections Phone 3 [facility] Start: 05-11-2022 History SDOH Social Connections Get Together 2 [facility] Start: 07-12-2020 Education 14 [facility] Start: 05-15-2022 Tobacco Comment quit 2012, tianna or 20 years, ~1pk/day [facility] Start: 1978 Sex Assigned At Male C [facility] Start: 05-05-2022 End: 06-26-2022 Exposure to SARS-CoV-2 (event) Not sure [facility] History of tobacco use Chews Tobacco [facility] Start: 05-11-2022 End: 04-05-2023 Social connection and isolation panel [facility] Do you belong to any clubs or organizations such as protestant groups, unions, fraternal or athletic groups, or school groups? No [facility] Are you now , , , , never or living with a partner? [facility] How often to you hav e a drink containing alcohol? Never [facility] How many standard dr inks containing alcohol do you have on a typical day? Patient does not drink [facility] Do you feel stress - tense, restless, nervous, or anxious, or unable to sleep at night because your mind is troubled all the time - these days [OSQ] Not at all [facility] (I/We) worried wheth er (my/our) food would run out before (I/we) got money to buy more. Never true [facility] Start: 05-06-2022 Gender identity Identifies as male gender (finding) [facility] Start: 05-06-2022 Sexual orientation Heterosexual (fin ding) [facility] Clinical Notes 02-19-2012 to 08-30-2023 Telephone Encounter - Du Barrett LPN - 05/15/2023 4:37 PM EDTTelephone Encounter - Tai Ascencio MD - 05/15/2023 3:43 PM EDTTelephone Encounter - Patricia Levin RN - 05/15/2023 1:57 PM EDT Note Date & Type Note Facility 08-30-2023 Note HNO ID: [id number] Author: NICOLE MEDINA APRN.MULTI DISCIPLINED LANGUAGE ANALYST Service: ? Author Type: Nurse Practitioner Type: Progress Notes Filed: 08/30/2023 15:31 Note Text: Chief Complaint Patient presents with: Follow Up: Discuss sleep study HPI Sameer Lucas is a 42 year old male who presents here today for Above Complaints. Patient presents for evaluation for sleep apnea. 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 Patient also reports snoring. Past medical history, appointments, medications, allergies reviewed. Previous Medical History PAST MEDICAL HISTORY Diagnosis Date Depression 1994 Essential hypertension, benign 02/19/2012 Former smoker 07/12/2020 Obesity, Class III, BMI >= 40 05/22/2019 Seasonal allergic rhinitis 10/21/2019 Seizure disorder, grand mal (HCC) 1989 occurred once. Took Dilantin for 6 years and then stopped. No seizures since. Tobacco user 09/07/2022 chew Venous insufficiency of both lower extremities 10/05/2022 Well adult exam 09/07/2022 Done: 09/07/2022 Previous Surgical History PAST SURGICAL HISTORY Procedure Laterality Date PAST SURGICAL HISTORY OF 2008 Dental extractions Family History FAMILY HISTORY Problem Relation Age of Onset Migraines Mother other (cohns) Mother Cerebral Embolism Father Stroke Father Lipids Father Hypertension Father Migraines Sister Diabetes Maternal Grandmother Lipids Maternal Grandmother Hypertension Maternal Grandmother Cancer Paternal Grandfather lung cancer Migraines Son GI Daughter celiac disease 9 years old Patient Allergies ALLERGIES No Known Allergies Current Medications Current Outpatient Medications on File Prior to Visit Medication Sig hydroCHLOROthiazide 12.5 mg capsule Take 1 capsule by mouth once daily. metoprolol succinate ER (TOPROL XL) 50 mg 24 hr tablet Take 1 tablet by mouth once daily. naproxen (NAPROSYN) 500 mg tablet Take 1 tablet by mouth twice daily as needed (for pain/inflammation). Take with food. Blood Pressure Monitor (BLOOD PRESSURE KIT) kit Blood pressure monitor and cuff. Test daily. No current facility-administered medications on file prior to visit. Social History Social History Tobacco Use Smoking status: Former Packs/day: 1.50 Years: 20.00 Additional pack years: 0.00 Total pack years: 30.00 Types: Cigarettes Quit date: 08/19/2012 Years since quittin.0 Smokeless tobacco: Current Types: Chew Tobacco comments: quit 2011, prior 20 years, ~1pk/day Vaping Use Vaping Use: Never used Substance Use Topics Alcohol use: Yes Comment: occasional, maybe once a month. Drug use: No Review of Symptoms REVIEW OF SYSTEMS SEE HPI EXAM: BP 150/86 Pulse 62 Resp 16 Wt (!) 169.6 kg (374 lb) BMI 49.01 kg/m? General Appearance: Well appearing, alert, in no acute distress, well-hydrated, well nourished.. Lungs: Lungs clear to auscultation. No wheezing, rhonchi, rales.. Heart: RRR without murmur, gallop, or rubs. No ectopy. Health Maintenance List Hepatitis B Vaccine(1 of 3 - 3-dose series) Never done BP Controlled (<130/80) due on 05/22/2020 Influenza Vaccine(1) due on 04/27/2023 Depression Assessment due on 08/27/2023 Hepatitis C Screening due on 09/07/2023 HIV Screening due on 09/07/2023 Covid-19 Vaccine(1) due on 09/07/2023 Annual PCP Team Chronic Disease Visit due on 10/05/2023 Lipid Screening due on 10/02/2027 DTaP,Tdap,Td Vaccine(2 - Td or Tdap) due on 05/22/2029 HPV Vaccine Aged Out ASSESSMENT/PLAN: 1. Essential hypertension, benign - ICD9: 401.1, ICD10: I10 (primary diagnosis) - Controlled - Continue current medications - Recommend home blood pressure monitoring, to bring results to next visit - Encouraged sodium restriction, DASH or Mediterranean diet - Recommend regular aerobic exercise - METOPROLOL SUCCINATE ER 50 MG TABLET,EXTENDED RELEASE 24 HR - HYDROCHLOROTHIAZIDE 12.5 MG CAPSULE - POLYSOMNOGRAM (PSG) 2. Snoring - ICD9: 786.09, ICD10: R06.83 - POLYSOMNOGRAM (PSG) 3. Obesity, Class III, BMI 40-49.9 (morbid obesity) (HCC) - ICD9: 278.01, ICD10: E66.01 Weight decreasing - POLYSOMNOGRAM (PSG) Nicole Medina APRN.[facility] 05-15-2023 Miscellaneous Notes Pt notified. Du Barrett LPN Let patient know refills sent. The following approved medication requests have been transmitted electronically. Requested Prescriptions Signed Prescriptions Disp Refills hydroCHLOROthiazide 12.5 mg capsule 30 capsule 0 Sig: Take 1 capsule by mouth once daily. Authorizing Provider: TAI ASCENCIO metoprolol succinate ER (TOPROL XL) 50 mg 24 hr tablet 30 tablet 0 Sig: Take 1 tablet by mouth once daily. Authorizing Provider: TAI ASCENCIO MD Patient calls and states that he is completely out of medication. Patient asking if new prescriptions can be sent to pharmacy. Last Office Visit: 10/05/2022 Future Office Visit: 05/24/2023 Requested Prescriptions Pending Prescriptions Disp Refills hydroCHLOROthiazide 12.5 mg capsule 30 capsule 5 Sig: Take 1 capsule by mouth once daily. metoprolol succinate ER (TOPROL XL) 50 mg 24 hr tablet 30 tablet 4 Sig: Take 1 tablet by mouth once daily. Date of Last Labs: 10/02/2022 documented in this encounter [facility] 11-20-2022 Miscellaneous Notes The following approved medication requests have been transmitted electronically. Requested Prescriptions Signed Prescriptions Disp Refills metoprolol succinate ER (TOPROL XL) 50 mg 24 hr tablet 30 tablet 4 Sig: Take 1 tablet by mouth once daily. Authorizing Provider: TAI ASCENCIO MD Patient has been identified by name and date of : Yes Requested Prescriptions Pending Prescriptions Disp Refills metoprolol succinate ER (TOPROL XL) 50 mg 24 hr tablet 30 tablet 2 Sig: Take 1 tablet by mouth once daily. RX INSTRUCTIONS: Patient aware RX will be sent to pharmacy. No need to notify patient. Katt Spears MA Priti: 09/2022 Nov: 03/2023 Last refill; 07/2022 documented in this encounter [facility] 10-06-2022 Miscellaneous Notes Patient has been notified of message from Marley Cochran PA-C. He verbalized understanding and was transferred to scheduling to set up PT. The patient has mild to moderate disc disease in multiple levels of the low back. Would suggest trying some physical therapy, order for PT placed. If still having issues after PT should be seen by spine. Patient called. Verified name and date of . Would like results of x-rays done on 10/02/2022. Please review and advise. Izzy Starks LPN documented in this encounter [facility] 10-05-2022 Note HNO ID: [id number] Author: Tai Ascencio MD Service: ? Author Type: Physician Type: Progress Notes Filed: 10/05/2022 4:41 PM Note Text: Chief Complaint Patient presents with: Follow Up HPI Sameer Lucas is a 41 year old male who presents here today for 4 week follow up left hip/pain/BP. Patient with HTN and here for HTN med check. At appt on 09/07/2022 patient was placed on HCTZ. Has not had any issues. Continues to get swelling in his legs that increases as the day goes on and over night resolves. Past medical history, appointments, medications, allergies reviewed. Previous Medical History PAST MEDICAL HISTORY Diagnosis Date Cigarette smoker 10/19/2009 Depression 1994 Essential hypertension, benign 02/19/2012 Seizure disorder, grand mal (HCC) 1989 occurred once. Took Dilantin for 6 years and then stopped. No seizures since. Previous Surgical History PAST SURGICAL HISTORY Procedure Laterality Date PAST SURGICAL HISTORY OF 2007 Dental extractions Family History FAMILY HISTORY Problem Relation Age of Onset Migraines Mother other (cohns) Mother Cerebral Embolism Father Stroke Father Lipids Father Hypertension Father Migraines Sister Diabetes Maternal Grandmother Lipids Maternal Grandmother Hypertension Maternal Grandmother Cancer Paternal Grandfather lung cancer Migraines Son GI Daughter celiac disease 9 years old Patient Allergies ALLERGIES No Known Allergies Current Medications Current Outpatient Medications on File Prior to Visit Medication Sig hydroCHLOROthiazide (HYDRODIURIL, ESIDRIX) 12.5 mg capsule Take 1 capsule by mouth once daily. metoprolol succinate ER (TOPROL XL) 50 mg 24 hr tablet Take 1 tablet by mouth once daily. naproxen (NAPROSYN) 500 mg tablet Take 1 tablet by mouth twice daily as needed (for pain/inflammation). Take with food. Blood Pressure Monitor (BLOOD PRESSURE KIT) kit Blood pressure monitor and cuff. Test daily. No current facility-administered medications on file prior to visit. Social History Social History Tobacco Use Smoking status: Former Packs/day: 1.50 Years: 20.00 Pack years: 30.00 Types: Cigarettes Quit date: 08/19/2012 Years since quittin.1 Smokeless tobacco: Current Types: Chew Tobacco comments: quit 2011, prior 20 years, ~1pk/day Vaping Use Vaping Use: Never used Substance Use Topics Alcohol use: Yes Comment: occasional, maybe once a month. Drug use: No Review of Symptoms REVIEW OF SYSTEMS GENERAL: No weight loss, malaise or fevers RESPIRATORY: Negative for cough, hemoptysis, wheezing, COPD, dyspnea or shortness of breath CARDIOVASCULAR: Negative for chest pain, increased leg swelling, hypertension, CHF or palpitations Legs: no calf muscle pain. EXAM: BP 133/83 (BP Site: Left Arm, BP Position: Sitting, BP Cuff Size: Large Adult) Pulse 75 Resp 16 Wt (!) 171.9 kg (379 lb) BMI 49.66 kg/m? BP 128/84 Pulse 75 Resp 16 Wt (!) 171.9 kg (379 lb) BMI 49.66 kg/m? Last 5 Encounter BP Readings: Date: BP: 10/05/2022 133/83 09/07/2022 142/86 05/15/2022 162/112 10/27/2021 128/82 07/12/2020 132/82[bp teri average[ General Appearance: Well appearing, alert, in no acute distress, well-hydrated, well nourished.. Lungs: Lungs clear to auscultation. No wheezing, rhonchi, rales.. Heart: RRR without murmur, gallop, or rubs. No ectopy. Extremities: No deformities, skin discoloration. Minimal pitting edema on the right lower ext. Health Maintenance List HEPATITIS B(1 of 3 - 3-dose series) Never done BP CONTROLLED (<130/80) due on 05/22/2020 INFLUENZA(1) due on 02/23/2023 HEPATITIS C SCREENING due on 09/07/2023 HIV SCREENING due on 09/07/2023 COVID-19 VACCINE(1) due on 09/07/2023 ANNUAL PCP TEAM CHRONIC DISEASE VISIT due on 09/07/2023 LIPID SCREEN due on 10/02/2027 DTAP,TDAP,TD(2 - Td or Tdap) due on 05/22/2029 DEPRESSION ASSESSMENT Completed Data reviewed A/P ASSESSMENT/PLAN: 1. Essential hypertension, benign - ICD9: 401.1, ICD10: I10 (primary diagnosis) - good control, improved control. - Continue current medication(s) - Recommended regular aerobic exercise. - Recommend home blood pressure monitoring, to bring results in on next visit - Goal of BP <130/80 2. Venous insufficiency of both lower extremities - ICD9: 459.81, ICD10: I87.2 - discussed that he body habitus contributes to this and promotes the leg swelling. Discussed wearing support socks. 3. Obesity, Class III, BMI >= 40 - ICD9: 278.01, ICD10: E66.01 - discussed need an benefits of weight loss. F/u 6 months routine Tai Ascencio MD [facility] 10-02-2022 Note HNO ID: [id number] Author: RT Doyle(R) Service: Nuclear Medicine Author Type: Technologist Type: Progress Notes Filed: 10/02/2022 1:57 PM Note Text: Radiology Service Progress Note PATIENT NAME: Sameer Lucas DATE OF SERVICE: October 02, 2022 TIME: 1:37 PM PATIENT IDENTITY VERIFICATION COMPLETED USING TWO (2) IDENTIFIERS: Name and Date of confirmed by patient verbally. FALL SCREENING: Has the patient had 2 falls in the last year or 1 fall with injury or currently using an Ambulatory Assistive Device (Walker, Cane, Wheelchair, Crutches, etc.)? No PATIENT GENDER DATA: Male PATIENT RELEVANT IMPLANT DATA REVIEWED: Not Applicable RADIOLOGY DEPARTMENT: General X-ray: Exam(s) Completed: Spine X-Ray(s): Lumbar AP / LAT / L5-S1 Pelvis X-Ray: Pelvis with Hip Left PERIPHERAL IV DATA: Not applicable SIGNED BY: RT Doyle(R) October 02, 2022 1:37 PM [facility] 09-07-2022 Note HNO ID: [id number] Author: Ramiro Weaver PA-C Service: ? Author Type: Physician Communications Editor Type: Progress Notes Filed: 09/07/2022 2:08 PM Note Text: Chief Complaint Patient presents with: Physical HPI Sameer Lucas is a 41 year old male who presents here today for physical. Patient hx of HTN, headaches, allergies, and has been noncompliant over past copuld years.. Was last seen for routine care in 2019 and then in apr 2022 he was seen for left hip/leg pain. Was found to have a hip fx and saw ortho, but did not do the repeat xrays that ortho requested. Since his acute visit in apr he has been back on his BP medications. He also continues to have some mild left hip pain although much improved compared to the fall. He does not check BP at home but does have machines to do so. Past medical history, appointments, medications, allergies reviewed. Previous Medical History PAST MEDICAL HISTORY Diagnosis Date Cigarette smoker 10/19/2009 Depression 1994 Essential hypertension, benign 02/19/2012 Seizure disorder, grand mal (HCC) 1989 occurred once. Took Dilantin for 6 years and then stopped. No seizures since. Previous Surgical History PAST SURGICAL HISTORY Procedure Laterality Date PAST SURGICAL HISTORY OF 2007 Dental extractions Family History FAMILY HISTORY Problem Relation Age of Onset Migraines Mother other (cohns) Mother Cerebral Embolism Father Stroke Father Lipids Father Hypertension Father Migraines Sister Diabetes Maternal Grandmother Lipids Maternal Grandmother Hypertension Maternal Grandmother Cancer Paternal Grandfather lung cancer Migraines Son GI Daughter celiac disease 9 years old Patient Allergies ALLERGIES No Known Allergies Current Medications Current Outpatient Medications on File Prior to Visit Medication Sig metoprolol succinate ER (TOPROL XL) 50 mg 24 hr tablet Take 1 tablet by mouth once daily. naproxen (NAPROSYN) 500 mg tablet Take 1 tablet by mouth twice daily as needed (for pain/inflammation). Take with food. Blood Pressure Monitor (BLOOD PRESSURE KIT) kit Blood pressure monitor and cuff. Test daily. No current facility-administered medications on file prior to visit. Social History Social History Tobacco Use Smoking status: Former Packs/day: 1.50 Years: 20.00 Pack years: 30.00 Types: Cigarettes Quit date: 08/19/2012 Years since quittin.0 Smokeless tobacco: Current Types: Chew Tobacco comments: quit 2011, prior 20 years, ~1pk/day Vaping Use Vaping Use: Never used Substance Use Topics Alcohol use: Yes Comment: occasional, maybe once a month. Drug use: No Review of Symptoms REVIEW OF SYSTEMS GENERAL: No weight loss, malaise or fevers HEENT: No changes in hearing or vision, no nose bleeds or other nasal problems NECK: Negative for lumps, goiter, pain and significant neck swelling RESPIRATORY: Negative for cough, hemoptysis, wheezing, COPD, dyspnea or shortness of breath CARDIOVASCULAR: Negative for chest pain, leg swelling, CHF or palpitations GI: Negative for abdominal discomfort, blood in stools or black stools, change in bowel habit, heart burn, nausea, vomiting : No history of dysuria, frequency or incontinence MUSCULOSKELETAL: see hpi SKIN: Negative for lesions, rash, and itching PSYCH: Negative for sleep disturbance, mood disorder and recent psychosocial stressors HEMATOLOGY/LYMPHOLOGY: Negative for prolonged bleeding, bruising easily or swollen nodes ENDOCRINE: Negative for cold or heat intolerance, polyuria, polydipsia and goiter NEURO: No history of headaches, syncope, paralysis, seizures or tremors EXAM: BP 142/86 Pulse 74 Temp 37.1 ?C (98.7 ?F) (Left Tympanic) Resp 18 Ht 186.1 cm (6' 1.25 ) Wt (!) 174.8 kg (385 lb 6.4 oz) SpO2 97% BMI 50.50 kg/m? General Appearance: Well appearing, alert, in no acute distress, well-hydrated, well nourished. and Morbidly obese. Head: Normocephalic, no masses, lesions, tenderness or abnormalities. Eyes: Anicteric sclera. Pupils are equally round and reactive to light. Extraocular movements are intact. . Ears: External ears normal, canals clear. TMs pearly de la rosa Neck: Supple, no adenopathy; thyroid symmetric, normal size, no bruits. Lungs: Lungs clear to auscultation. No wheezing, rhonchi, rales.. Heart: RRR without murmur, gallop, or rubs. No ectopy. Abdomen: Normal abdominal exam, Abdomen soft, non-tender. Bowel sounds normal. No masses, organomegaly. Extremities: 1+edema B/l. No deformities, skin discoloration, clubbing or cyanosis. Good capillary refill. . Peripheral Pulses: Normal. Neurologic: Gait normal. Reflexes normal and symmetric. Sensation grossly intact.. Health Maintenance List HEPATITIS B(1 of 3 - 3-dose series) Never done HEPATITIS C SCREENING Never done HIV SCREENING Never done BP CONTROLLED (<130/80) due on 05/22/2020 DEPRESSION ASSESSMENT Never done IN (more content not included)... [facility] 09-07-2022 Instructions Ramiro Weaver PA-C - 09/07/2022 1:49 PM EST Please get labs done. Do the xrays that ortho ordered. May consider Physical Therapy for the continued hip pain. documented in this encounter [facility] 09-07-2022 History of Present illness Narrative Chief Complaint Patient presents with: Physical HPI Sameer Lucas is a 41 year old male who presents here today for physical. Patient hx of HTN, headaches, allergies, and has been noncompliant over past copuld years.. Was last seen for routine care in 2019 and then in apr 2022 he was seen for left hip/leg pain. Was found to have a hip fx and saw ortho, but did not do the repeat xrays that ortho requested. Since his acute visit in apr he has been back on his BP medications. He also continues to have some mild left hip pain although much improved compared to the fall. He does not check BP at home but does have machines to do so. Past medical history, appointments, medications, allergies reviewed. Previous Medical History PAST MEDICAL HISTORY Diagnosis Date Cigarette smoker 10/19/2009 Depression 1994 Essential hypertension, benign 02/19/2012 Seizure disorder, grand mal (HCC) 1989 occurred once. Took Dilantin for 6 years and then stopped. No seizures since. Previous Surgical History PAST SURGICAL HISTORY Procedure Laterality Date PAST SURGICAL HISTORY OF 2007 Dental extractions Family History FAMILY HISTORY Problem Relation Age of Onset Migraines Mother other (cohns) Mother Cerebral Embolism Father Stroke Father Lipids Father Hypertension Father Migraines Sister Diabetes Maternal Grandmother Lipids Maternal Grandmother Hypertension Maternal Grandmother Cancer Paternal Grandfather lung cancer Migraines Son GI Daughter celiac disease 9 years old Patient Allergies ALLERGIES No Known Allergies Current Medications Current Outpatient Medications on File Prior to Visit Medication Sig metoprolol succinate ER (TOPROL XL) 50 mg 24 hr tablet Take 1 tablet by mouth once daily. naproxen (NAPROSYN) 500 mg tablet Take 1 tablet by mouth twice daily as needed (for pain/inflammation). Take with food. Blood Pressure Monitor (BLOOD PRESSURE KIT) kit Blood pressure monitor and cuff. Test daily. No current facility-administered medications on file prior to visit. Social History Social History Tobacco Use Smoking status: Former Packs/day: 1.50 Years: 20.00 Pack years: 30.00 Types: Cigarettes Quit date: 08/19/2012 Years since quittin.0 Smokeless tobacco: Current Types: Chew Tobacco comments: quit 2012, prior 20 years, ~1pk/day Vaping Use Vaping Use: Never used Substance Use Topics Alcohol use: Yes Comment: occasional, maybe once a month. Drug use: No Review of Symptoms REVIEW OF SYSTEMS GENERAL: No weight loss, malaise or fevers HEENT: No changes in hearing or vision, no nose bleeds or other nasal problems NECK: Negative for lumps, goiter, pain and significant neck swelling RESPIRATORY: Negative for cough, hemoptysis, wheezing, COPD, dyspnea or shortness of breath CARDIOVASCULAR: Negative for chest pain, leg swelling, CHF or palpitations GI: Negative for abdominal discomfort, blood in stools or black stools, change in bowel habit, heart burn, nausea, vomiting : No history of dysuria, frequency or incontinence MUSCULOSKELETAL: see hpi SKIN: Negative for lesions, rash, and itching PSYCH: Negative for sleep disturbance, mood disorder and recent psychosocial stressors HEMATOLOGY/LYMPHOLOGY: Negative for prolonged bleeding, bruising easily or swollen nodes ENDOCRINE: Negative for cold or heat intolerance, polyuria, polydipsia and goiter NEURO: No history of headaches, syncope, paralysis, seizures or tremors EXAM: BP 142/86 Pulse 74 Temp 37.1 C (98.7 F) (Left Tympanic) Resp 18 Ht 186.1 cm (6' 1.25 ) Wt (!) 174.8 kg (385 lb 6.4 oz) SpO2 97% BMI 50.50 kg/m General Appearance: Well appearing, alert, in no acute distress, well-hydrated, well nourished. and Morbidly obese. Head: Normocephalic, no masses, lesions, tenderness or abnormalities. Eyes: Anicteric sclera. Pupils are equally round and reactive to light. Extraocular movements are intact. . Ears: External ears normal, canals clear. TMs pearly de [place] ro[place] Neck: Supple, no adenopathy; thyroid symmetric, normal size, no bruits. Lungs: Lungs clear to auscultation. No wheezing, rhonchi, rales.. Heart: RRR without murmur, gallop, or rubs. No ectopy. Abdomen: Normal abdominal exam, Abdomen soft, non-tender. Bowel sounds normal. No masses, organomegaly. Extremities: 1+edema B/l. No deformities, skin discoloration, clubbing or cyanosis. Good capillary refill. . Peripheral Pulses: Normal. Neurologic: Gait normal. Reflexes normal and symmetric. Sensation grossly intact.. Health Maintenance List HEPATITIS B(1 of 3 - 3-dose series) Never done HEPATITIS C SCREENING Never done HIV SCREENING Never done BP CONTROLLED (<130/80) due on 05/22/2020 DEPRESSION ASSESSMENT Never done INFLUENZA(1) due on 02/23/2023 COVID-19 VACCINE(1) due on 09/07/2023 ANNUAL PCP TEAM CHRONIC DISEASE VISIT due on 05/15/2023 LIPID SCREEN due on 05/24/2024 DTAP,TDAP,TD(2 - Td or Tdap) due on 05/22/2029 Data reviewed ASSESSMENT/PLAN: 1. Well adult exam - ICD9: V70.0, ICD10: Z00.00 (primary diagnosis) - Counseled on healthy diet and regular exercise - Discussed need for and benefit of weight loss. BMI 50.50 kg/(m^2) 2. Essential hypertension, benign - ICD9: 401.1, ICD10: I10 - suboptimal control - Continue current medication(s) - Add HCTZ - Recommended regular aerobic exercise. - Recommend home blood pressure monitoring, to bring results in on next visit - Goal of BP <130/80 - LIPID PANEL, NONFASTING - COMP METABOLIC PANEL - URINALYSIS, WITH MICROSCOPIC 3. Encounter for lipid screening for cardiovascular disease - ICD9: V77.91, V81.2, ICD10: Z13.220, Z13.6 - LIPID PANEL, NONFASTING 4. Screening for diabetes mellitus - ICD9: V77.1, ICD10: Z13.1 - COMP METABOLIC PANEL - HGB A1C 5. Seasonal allergic rhinitis, unspecified trigger - ICD9: 477.9, ICD10: J30.2 stable 6. Obesity, Class III, BMI >= 40 - ICD9: 278.01, ICD10: E66.01 Stable - Behavioral intervention 7. Headache, unspecified headache type - ICD9: 784.0, ICD10: R51.9 8. Peripheral edema - ICD9: 782.3, ICD10: R60.9 Start HCTZ Decrease salt in diet. 9. Left hip pain - ICD9: 719.45, ICD10: M25.552 Advised patient to get the xrays as prev ordered ortho. Consider Physical Therapy. Follow up in 1 month for recheck BP/edema. Ramiro Weaver PA-C documented in this encounter [facility] 08-15-2022 Miscellaneous Notes Patient has been identified by name and date of : Yes Last office visit in this department: 05/15/2022 RX INSTRUCTIONS: Patient aware RX will be sent to pharmacy. No need to notify patient. Patient phones requesting refills as follows: Requested Prescriptions Pending Prescriptions Disp Refills metoprolol succinate ER (TOPROL XL) 50 mg 24 hr tablet 30 tablet 2 Sig: Take 1 tablet by mouth once daily. Please review and advise. Chata Polk documented in this encounter [facility] 06-26-2022 History of Present illness Narrative Alba Patel MD Department of Orthopaedics Orthopaedics [address] [facility] [address] Dept: [phone] Dept June 26, 2022 CHIEF COMPLAINT: Established Patient and Fracture of the Left Hip HPI Patient is here today for 9 week follow up post left acetabulum fracture. Patient states the hip is doing better but he is experiencing a sharp pain in his front upper leg and a burning sensation in his calf. Patient was unaware of needing a new xray today so he does not have a current one. ASSESSMENT: M25.552, G89.29 Chronic left hip pain (primary encounter diagnosis) S32.402A Closed nondisplaced fracture of left acetabulum, unspecified portion of acetabulum, initial encounter ([facility]) M79.605 Left leg pain PLAN: Is x-rays are looking mild. This may be still a bit early for him to be just simply weightbearing especially with his weight, however he seems to be doing fine. I suspect some of his issues may be lumbar related we will get some baseline films. Mr. Sameer Lucas was advised as to contrast therapies and/or to take analgesics/anti-inflammatories as needed and all contraindications were reviewed. OBJECTIVE: Mr. Sameer Lucas is a pleasant 41 year old in no apparent distress. Gen:There were no vitals taken for this visit. nl development, severely obese , no deformities ENT: Normocephalic, normal hearing, moist mucosa CV: Pulses:DP/PT= 2+ and symmetric, capillary refill < 2 secs, no peripheral edema/varicosities Skin: no rash, bruising or lesions. Good turgor. Psych: cooperative and appropriate, alert and oriented x 3, good mood and affect. Musculoskeletal: Gentle range of motion of the hip with flexion and internal rotation especially without any significant pain. He is mildly altered gait. Imaging: Pending Supporting Subjective Information Below: Past Surgical History: PAST SURGICAL HISTORY Procedure Laterality Date PAST SURGICAL HISTORY OF 2007 Dental extractions Medications: Current Outpatient Medications Medication Sig metoprolol succinate ER (TOPROL XL) 50 mg 24 hr tablet Take 1 tablet by mouth once daily. naproxen (NAPROSYN) 500 mg tablet Take 1 tablet by mouth twice daily as needed (for pain/inflammation). Take with food. Blood Pressure Monitor (BLOOD PRESSURE KIT) kit Blood pressure monitor and cuff. Test daily. No current facility-administered medications for this visit. Allergies: Patient has no known allergies. ROS: General (negative for fatigue, malaise, weight loss/gain) HEENT (negative for headache, earache, recent vision changes, sinus pain, sore throat) Respiratory (no recent shortness of breath, hemoptysis) CV (negative for chest tightness, palpitations) Musculoskeletal (see HPI) Psych (no depression, anxiety) Alba Patel MD documented in this encounter [facility] 05-23-2022 History of Present illness Narrative Radiology Service Progress Note PATIENT NAME: Sameer Lucas DATE OF SERVICE: May 23, 2022 TIME: 2:34 PM PATIENT IDENTITY VERIFICATION COMPLETED USING TWO (2) IDENTIFIERS: Name and Date of confirmed by patient verbally. FALL SCREENING: Has the patient had 2 falls in the last year or 1 fall with injury or currently using an Ambulatory Assistive Device (Walker, Cane, Wheelchair, Crutches, etc.)? No PATIENT GENDER DATA: Male PATIENT RELEVANT IMPLANT DATA REVIEWED: Yes RADIOLOGY DEPARTMENT: CT; Exam(s) Completed: lt hip w/o PERIPHERAL IV DATA: Not applicable SIGNED BY: RT William(R) May 23, 2022 2:34 PM documented in this encounter [facility] 05-16-2022 Miscellaneous Notes Pt was transferred to set up appointments. Sadi Madrid LPN Order placed. Spoke with pt and advised of message from Dr Patel. Pt verbalizes understanding. Advised pt he would be contacted once Ramiro has put orders in. Pt states he does have crutches that he made them give him when he was seen in ER. Sadi Madrid LPN X-ray reviewed by Dr. Patel. Advised patient to be toe touch weight bearing on crutches or walker and needs to have CT scan ordered. Follow up with Dr. Patel after CT scan completed. Ramiro Weaver's office calling to see if patient could be seen in the office this week for Left hip fracture. X-ray done yesterday: IMPRESSION: Fracture of the left acetabulum Advised that we would check with providers to see what they would recommend. We are to let their office know. Mary Flores documented in this encounter [facility] 05-15-2022 History of Present illness Narrative Chief Complaint Patient presents with: Musculoskeletal Problem: Left leg pain x 3 weeks HPI Sameer Lucas is a 41 year old male who presents here today for Above Complaints.. Patient states that he fell about 3 weeks ago. Left leg slid out and he felt some pops and pain. Since then he has continued to have pain in upper leg muscles. Initially the hip was tender but that has improved. Patient states that some days are worse than others. If he sits, it cramps more. Denies n/t but describes the pain as burning and radiates down his leg. Also reports being out of his BP medication since sep. Has not been seen since jun 2020. Last 3 Encounter Wt Readings: Date: Wt: 05/15/2022 173.3 kg (382 lb) 10/27/2021 163.5 kg (360 lb 6.4 oz) 07/12/2020 157.9 kg (348 lb) Past medical history, appointments, medications, allergies reviewed. Previous Medical History PAST MEDICAL HISTORY Diagnosis Date Cigarette smoker 10/19/2009 Depression 1994 Essential hypertension, benign 02/19/2012 Seizure disorder, grand mal (HCC) 1989 occurred once. Took Dilantin for 6 years and then stopped. No seizures since. Previous Surgical History PAST SURGICAL HISTORY Procedure Laterality Date NONE Family History FAMILY HISTORY Problem Relation Age of Onset Migraines Mother other (cohns) Mother Cerebral Embolism Father Stroke Father Lipids Father Hypertension Father Migraines Sister Diabetes Maternal Grandmother Lipids Maternal Grandmother Hypertension Maternal Grandmother Cancer Paternal Grandfather lung cancer Migraines Son GI Daughter celiac disease 9 years old Patient Allergies ALLERGIES No Known Allergies Current Medications Current Outpatient Medications on File Prior to Visit Medication Sig metoprolol succinate ER (TOPROL XL) 50 mg 24 hr tablet Take 1 tablet by mouth once daily. Blood Pressure Monitor (BLOOD PRESSURE KIT) kit Blood pressure monitor and cuff. Test daily. No current facility-administered medications on file prior to visit. Social History Social History Tobacco Use Smoking status: Former Packs/day: 1.50 Years: 20.00 Pack years: 30.00 Types: Cigarettes Quit date: 08/19/2012 Years since quittin.7 Smokeless tobacco: Former Quit date: 05/05/2019 Tobacco comments: quit 2011, prior 20 years, ~1pk/day Vaping Use Vaping Use: Never used Substance Use Topics Alcohol use: Yes Comment: occasional, maybe once a month. Drug use: No Review of Symptoms REVIEW OF SYSTEMS See hpi EXAM: BP 162/112 (BP Site: Left Arm, BP Position: Sitting, BP Cuff Size: Large Adult) Pulse 76 Temp 36.7 C (98.1 F) Resp 18 Wt (!) 173.3 kg (382 lb) BMI 48.39 kg/m General Appearance: Well appearing, alert, in no acute distress, well-hydrated, well nourished. and Morbidly obese. Musculoskeletal: left leg NVI. Pain and weakness noted when patient asked to actively flex Left knee. Full Passive extensive ROM with pain. No pain to palp. +pain to internal rotation and with figure four maneuver. Health Maintenance List HEPATITIS B(1 of 3 - 3-dose series) Never done COVID-19 VACCINE(1) Never done HEPATITIS C SCREENING Never done HIV SCREENING Never done BP CONTROLLED (<130/80) due on 05/22/2020 INFLUENZA(1) due on 04/27/2022 DEPRESSION SCREENING due on 05/11/2023 ANNUAL PCP TEAM CHRONIC DISEASE VISIT due on 05/15/2023 LIPID SCREEN due on 05/24/2024 DTAP,TDAP,TD(2 - Td or Tdap) due on 05/22/2029 Data reviewed ASSESSMENT/PLAN: 1. Quadriceps strain, left, initial encounter - ICD9: 843.8, ICD10: S76.112A (primary diagnosis) Check xray of femur. Start naproxen bid. Set up with Physical Therapy. - XR FEMUR GENERAL 2V AP/LAT LEFT - CONSULT TO PHYSICAL THERAPY 2. Left leg pain - ICD9: 729.5, ICD10: M79.605 - XR FEMUR GENERAL 2V AP/LAT LEFT - CONSULT TO PHYSICAL THERAPY 3. Essential hypertension, benign - ICD9: 401.1, ICD10: I10 - poor control - noncompliance - restart metoprolol - Recommended regular aerobic exercise. - Recommend home blood pressure monitoring, to bring results in on next visit - Goal of BP <130/80 Patient to schedule for routine visit in 1 month. Ramiro Weaver PA-C documented in this encounter [facility] documented as of this encounter (statuses as of 05/15/2022) [facility] History of Past illness Narrative* Problem Noted Date Resolved Date Essential hypertension, benign 02/19/2012 0 05/22/2019 Cigarette smoker 10/19/2009 05/22/2019 Depression 10/19/2009 05/22/2019 documented as of this encounter (statuses as of 05/16/2022) [address]25-2012 History of Past illness Narrative* Problem Noted Date Resolved Date Essential hypertension, benign 02/19/2012 0 05/22/2019 Cigarette smoker 10/19/2009 05/22/2019 Depression 10/19/2009 05/22/2019 documented as of this encounter (statuses as of 05/24/2022) [facility] History of Past illness Narrative* Problem Noted Date Resolved Date Essential hypertension, benign 02/19/2012 0 05/22/2019 Cigarette smoker 10/19/2009 05/22/2019 Depression 10/19/2009 05/22/2019 documented as of this encounter (statuses as of 06/21/2022) [facility] History of Past illness Narrative* Problem Noted Date Resolved Date Essential hypertension, benign 02/19/2012 0 05/22/2019 Cigarette smoker 10/19/2009 05/22/2019 Depression 10/19/2009 05/22/2019 documented as of this encounter (statuses as of 07/27/2022) [facility] History of Past illness Narrative* Problem Noted Date Resolved Date Essential hypertension, benign 02/19/2012 0 05/22/2019 Cigarette smoker 10/19/2009 05/22/2019 Depression 10/19/2009 05/22/2019 documented as of this encounter (statuses as of 08/15/2022) [facility] History of Past illness Narrative* Problem Noted Date Resolved Date Essential hypertension, benign 02/19/2012 0 05/22/2019 Cigarette smoker 10/19/2009 05/22/2019 Depression 10/19/2009 05/22/2019 documented as of this encounter (statuses as of 09/07/2022) [facility] History of Past illness Narrative* Problem Noted Date Resolved Date Essential hypertension, benign 02/19/2012 0 05/22/2019 Cigarette smoker 10/19/2009 05/22/2019 Depression 10/19/2009 05/22/2019 documented as of this encounter (statuses as of 10/06/2022) [facility] History of Past illness Narrative* Problem Noted Date Resolved Date Essential hypertension, benign 02/19/2012 0 05/22/2019 Cigarette smoker 10/19/2009 05/22/2019 Depression 10/19/2009 05/22/2019 documented as of this encounter (statuses as of 11/20/2022) [facility] History of Past illness Narrative* Problem Noted Date Diagnosed Date Resolved Date Essential hypertension, benign 02/19/2012 05/22/2019 Cigarette smoker 10/19/2009 05/22/2019 Depression 10/19/2009 05/22/2019 documented as of this encounter (statuses as of 05/16/2023) [facility] note* Diagnosis Quadriceps strain, left, initial encounter- Primary Left leg pain Pain in limb Essential hypertension, benign [facility] [place] [facility] Diagnosis Closed fracture of left hip, initial encounter (HCC)- Primary Closed nondisplaced fracture of left acetabulum, unspecified portion of acetabulum, initial encounter ([facility] [place] [facility] Diagnosis Closed fracture of left hip, initial encounter (HCC) Closed nondisplaced fracture of left acetabulum, unspecified portion of acetabulum, initial encounter ([facility]) documented in this encounter [facility] note* Diagnosis Closed nondisplaced fracture of left acetabulum, unspecified portion of acetabulum, initial encounter (HCC)- Primary [facility] [place] [facility] Diagnosis Chronic left hip pain- Primary Pain in joint, pelvic region and thigh Closed nondisplaced fracture of left acetabulum, unspecified portion of acetabulum, initial encounter (HCC) Left leg pain Pain in limb [facility] [place] [facility]* Diagnosis Well adult exam- Primary Routine general medical examination at a health care facility Essential hypertension, benign Encounter for lipid screening for cardiovascular disease Screening for lipoid disorders Screening for diabetes mellitus Seasonal allergic rhinitis, unspecified trigger Obesity, Class III, BMI >= 40 Morbid obesity Headache, unspecified headache type Peripheral edema Edema Left hip pain Pain in joint, pelvic region and thigh Tobacco user Tobacco use disorder [facility] [place] [facility]* Diagnosis DDD (degenerative disc disease), lumbar- Primary Degeneration of lumbar or lumbosacral intervertebral disc documented in this encounter [facility] for referral (narrative)* Diagnostic Procedure Only (Routine) - Pending Review Specialty Diagnoses / Procedures Referred By Contac t Referred To Contact XR IMAGING Diagnoses Closed nondisplaced fracture of left acetabulum, unspecified portion of acetabulum, initial encounter ([facility]) Procedures XR HIP GENERAL 3V PELV/AP/LAT LEFT RADEX HIP UNILATERAL WITH PELVIS 2-3 VIEWS Alba Patel MD [address] [place] [address] Xr Imaging Referral ID Status Reason Start Date Expiration Date Visits Requested Visits Authorized [id number] Pending Review Auto-Generat ed Referral 2 07/21/2023 1 1 [facility] for referral (narrative)* Diagnostic Procedure Only (Routine) - Pending Review Specialty Diagnoses / Procedures Referred By Contac t Referred To Contact XR IMAGING Diagnoses Left leg pain Procedures XR LUMBAR GENERAL 3V AP/LAT/L5-S1 RADEX SPINE LUMBOSACRAL 2/3 VIEWS Alba Patel MD [address] [place] [address] Xr Imaging Referral ID Status Reason Start Date Expiration Date Visits Requested Visits Authorized [id number] Pending Review Auto-Generat ed Referral 2 07/26/2023 1 1 * Diagnostic Procedure Only (Routine) - Pending Review Specialty Diagnoses / Procedures Referred By Contac t Referred To Contact XR IMAGING Diagnoses Chronic left hip pain Closed nondisplaced fracture of left acetabulum, unspecified portion of acetabulum, initial encounter ([facility]) Procedures XR HIP GENERAL 3V PELV/AP/LAT LEFT RADEX HIP UNILATERAL WITH PELVIS 2-3 VIEWS Alba Patel MD [address] [place] [address] Xr Imaging Referral ID Status Reason Start Date Expiration Date Visits Requested Visits Authorized [id number] Pending Review Auto-Generat ed Referral 2 07/26/2023 1 1 [facility] - Pending Review Specialty Diagnoses / Procedures Referred By Contac t Referred To Contact Physical Therapy Diagnoses DDD (degenerative disc disease), lumbar Procedures CONSULT TO PHYSICAL THERAPY Marley Cochran PA-C [address] [place] [address] Referral ID Status Reason Start Date Expiration Date V isits Requested Visits Authorized [id number] Pending Review 10/06/2022 01/04/2023 1 1 [facility] Reason for Referral Specialty Diagnoses / Procedures Referred By Contac t Referred To Contact [facility] Diagnoses Quadriceps strain, left, initial encounter Left leg pain Procedures CONSULT TO PHYSICAL THERAPY PHYSICAL THERAPY EVALUATION HIGH COMPLEX 45 MINS Ramiro Weaver PA-C [address] [place] [address] [facility] [place] [address] [place] [address] Referral ID Status Reason Start Date Expiration Date V isits Requested Visits Authorized [id number] Authorized 08/27/2021 08/26/2022 40 40 Specialty Diagnoses / Procedures Referred By Contac t Referred To Contact XR IMAGING Diagnoses Quadriceps strain, left, initial encounter Left leg pain Procedures XR FEMUR GENERAL 2V AP/LAT LEFT RADIOLOGIC EXAMINATION FEMUR MINIMUM 2 VIEWS Ramiro Weaver PA-C [address] [place] [address] Xr Imaging Referral ID Status Reason Start Date Expiration Date V isits Requested Visits Authorized [id number] Closed Auto-Generate d Referral 05/15/2022 06/14/2023 1 1 Specialty Diagnoses / Procedures Referred By Contac t Referred To Contact CT IMAGING Diagnoses Closed fracture of left hip, initial encounter ([facility]) Closed nondisplaced fracture of left acetabulum, unspecified portion of acetabulum, initial encounter ([facility]) Procedures CT HIP WO IVCON LT CT LOWER EXTREMITY W/O CONTRAST MATERIAL Ramiro Weaver PA-C [address] [place] [address] Ct Imaging Referral ID Status Reason Start Date Expiration Date Visits Requested Visits Authorized [id number] Authorized Auto-Generat ed Referral 05/16/2022 06/30/2022 1 1 Referral ID Status Reason Start Date Expiration Date V isits Requested Visits Authorized [id number] Closed Auto-Generate d Referral 05/16/2022 06/30/2022 1 1 Summary Purpose Family History No Family History Records Found Advance Directives No Advanced Directives Records Found Additional Source Comments Source Comments (unrecognize d section and content) In the event this informatio n is protected by the Federal Confidentiality of Alcohol and Drug Abuse Patient Records regulations: The Federal rules restrict any use of the information to criminally investigate or prosecute any alcohol or drug abuse patient.[facility] the event this information is protected by the Federal Confidentiality of Alcohol and Drug Abuse Patient Records regulations: The Federal rules restrict any use of the information to criminally investigate or prosecute any alcohol or drug abuse patient.[facility] the event this information is protected by the Federal Confidentiality of Alcohol and Drug Abuse Patient Records regulations: The Federal rules restrict any use of the information to criminally investigate or prosecute any alcohol or drug abuse patient.[facility] the event this information is protected by the Federal Confidentiality of Alcohol and Drug Abuse Patient Records regulations: The Federal rules restrict any use of the information to criminally investigate or prosecute any alcohol or drug abuse patient.[facility] the event this information is protected by the Federal Confidentiality of Alcohol and Drug Abuse Patient Records regulations: The Federal rules restrict any use of the information to criminally investigate or prosecute any alcohol or drug abuse patient.[facility] the event this information is protected by the Federal Confidentiality of Alcohol and Drug Abuse Patient Records regulations: The Federal rules restrict any use of the information to criminally investigate or prosecute any alcohol or drug abuse patient.[facility] the event this information is protected by the Federal Confidentiality of Alcohol and Drug Abuse Patient Records regulations: The Federal rules restrict any use of the information to criminally investigate or prosecute any alcohol or drug abuse patient.[facility] the event this information is protected by the Federal Confidentiality of Alcohol and Drug Abuse Patient Records regulations: The Federal rules restrict any use of the information to criminally investigate or prosecute any alcohol or drug abuse patient.[facility] the event this information is protected by the Federal Confidentiality of Alcohol and Drug Abuse Patient Records regulations: The Federal rules restrict any use of the information to criminally investigate or prosecute any alcohol or drug abuse patient.[facility] the event this information is protected by the Federal Confidentiality of Alcohol and Drug Abuse Patient Records regulations: The Federal rules restrict any use of the information to criminally investigate or prosecute any alcohol or drug abuse patient.[facility] Reason for Visit (unrecogniz ed section and content) Reason Comments Appointment request Reason Comments Radiology CT Specialty Diagnoses / Procedures Referred By Contac t Referred To Contact CT IMAGING Diagnoses Closed fracture of left hip, initial encounter ([facility]) Closed nondisplaced fracture of left acetabulum, unspecified portion of acetabulum, initial encounter ([facility]) Procedures CT HIP WO IVCON LT CT LOWER EXTREMITY W/O CONTRAST MATERIAL Ramiro Weaver PA-C [address] [place] [address] Ct Imaging Referral ID Status Reason Start Date Expiration Date V isits Requested Visits Authorized [id number] Closed Auto-Generate d Referral 05/16/2022 06/30/2022 1 1 Reason Comments Established Patient Fracture Reason Comments Refill Request Reason Comments Physical Reason Comments Results Reason Onset Date Comments Refill Request 11/17/2022 Reason Onset Date Comments Refill Request 05/15/2023 Care Teams (unrecognized sec tion and content) Supervisor Of Way Relationship Specialty Start Date End Date Tai Ascencio MD [facility] [place] [address] PCP - General Family Medicine 04/27/[address] Relationship Specialty Start Date End Date Tai Ascencio MD [address] [place] [address] PCP - General Family Medicine 04/27/[address] Relationship Specialty Start Date End Date Tai Ascencio MD [facility] [place] [address] PCP - General Family Medicine 04/27/[address] Relationship Specialty Start Date End Date Tai Ascencio MD [address] [place] [address] PCP - General Family Medicine 04/27/[address] Relationship Specialty Start Date End Date Tai Ascencio MD [address] [place] [address] PCP - General Family Medicine 04/27/[address] Relationship Specialty Start Date End Date Tai Ascencio MD [address] [place] [address] PCP - General Family Medicine 04/27/[address] Relationship Specialty Start Date End Date Tai Ascencio MD [address] [place], [place] [address] PCP - General Family Medicine 04/27/[address] Relationship Specialty Start Date End Date Tai Ascencio MD [address] [place], [place] [id number] PCP - General Family Medicine 04/27/20 (unrecognized sect ion and content) No Status Records Found INFORMATION SOURCE (unrecogn ized section and content) FOR RECORDS PERTAINING TO PATIENTS WHO ARE OR HAVE BEEN ENROLLED IN A CHEMICAL DEPENDENCY/SUBSTANCEABUSE PROGRAM, SOME INFORMATION MAY BE OMITTED. This clinical summary was aggregated from multiple sources. Caution should be exercised in using it in the provision of clinical care. This summary normalizes information from multiple sources, and as a consequence, information in this document may materially change the coding, format and clinical context of patient data. In addition, data may be omitted in some cases. CLINICAL DECISIONS SHOULD BE BASED ON THE PRIMARY CLINICAL RECORDS. [employer] [facility]. provides no warranty or guarantee of the accuracy or completeness of information in this document.
== END | disposition home or self-care (01) ==
LOC: SL 19:57
PROVIDERS: PCP Family Medicine; Referring Provider Nurse Practitioner Family; Visit Provider Nurse Practitioner Family
DX: I10 Essential (primary) hypertension (principal); E66.01 Morbid (severe) obesity due to excess calories; R06.83 Snoring
CPT/HCPCS: 95810